=== PATIENT | male | born 2000 | race Caucasian/White ===

== ENCOUNTER 2019-07-14 13:02 | Emergency (ER) | payer BC, OTHER ==
[~2019-07-14] VITALS: Ht 177.8 cm; Wt 72.8 kg
[2019-07-14 13:13] VITALS: BP 121/84
[2019-07-14] MEDS ORDERED: DEXAMETHASONE 4 MG TABLET PO ONE (13:30)
[2019-07-14] MEDS ORDERED: PRED20TA PO (13:58)
[2019-07-14] MEDS ORDERED: ALBU2.5V8 IH (13:58)
[2019-07-14] MEDS ORDERED: GUAI118L13 PO (13:58)
--- NOTE | 2019-07-14 13:58 | PHYS DOC ---
Past History Past Medical History: No Pertinent History Past Surgical History: No Surgical History Smoking: Non-smoker Alcohol Use: Rarely Drug Use: None Adult General Chief Complaint Chief Complaint: SHORTNESS OF BREATH HPI HPI Patient is a 19 yo male presenting with shortness of breath and cough. He presented to [facility] on Monday 07/10 and was diagnosed with influenza and bronchitis and prescribed Tamiflu, azithromycin, and Zofran. He reports that he began to feel better yesterday 07/14 and was well enough to go to work. He felt well until this morning when he began feeling short of breath. His cough is productive, but has no blood in sputum. He went to [facility] and was fou nd to have O2 sats in low 90s so he then presented to [place]. He reports that his shortness of breath waxes and wanes and says that his symptoms become worse when he lays down and improves when he is sitting up. He reports nausea and chills. He denies fever, chest pain, diarrhea and vomiting. Review of Systems Review of Systems Constitutional: Denies fever, reports chills and fatigue Eyes: Denies redness or eye pain HENT: Denies sore throat, reports nasal congestion Respiratory: Reports cough or shortness of breath Cardiovascular: Denies chest pain, reports palpitations GI: Denies abdominal pain and vomiting, reports nausea : Denies dysuria or hematuria Musculoskeletal: Denies back pain or joint pain Integument: Denies rash or skin lesions Neurologic: Denies headache, focal weakness or sensory changes Complete systems were reviewed and found to be within normal limits, except as documented in this note. Family History Family History No pertinent family history. Current Medications Current Medications Current Medications Medications (Trade) Dose Ordered Sig/Nikko Start Time Stop Time Status Last Admin Dose Admin Dexamethasone (Decadron) 10 mg 1X ONCE 07/14/19 13:30 07/14/19 13:31 DC 07/14/19 13:30 10 MG Allergies Allergies Allergies Coded Allergies Type Severity Reaction Last Updated Verified No Known Drug Allergies 07/14/19 No Physical Exam Physical Exam Constitutional: Well developed, well nourished, no acute distress, non-toxic appearance HENT: Normocephalic, atraumatic, oropharynx moist with no erythema or exudate, b/l TMs clear Eyes: Conjunctiva normal, no discharge Neck: Normal range of motion, supple Cardiovascular: Heart rate normal, regular rhythm Lungs & Thorax: Bilateral breath sounds clear to auscultation, no wheezing or crackles Abdomen: Soft, no tenderness Skin: Warm, dry, no erythema, no rash Extremities: ROM intact, no edema Neurologic: Alert and oriented X 3, normal motor function, normal sensory function, no focal deficits noted Psychologic: Affect normal, judgment normal Current Patient Data Vital Signs Vital Signs Date Time Temp Pulse Resp B/P (MAP) Pulse Ox O2 Delivery O2 Flow Rate FiO2 07/14/19 13:13 98.3 75 16 121/84 (96) 100 Room Air EKG EKG [] Radiology/Procedures Radiology/Procedures PROCEDURE: CHEST PA & LATERAL CHEST PA LATERAL History: Cough Comparison: None. Findings: The cardiomediastinal silhouette is normal. Pulmonary vasculature is normal. The lungs are clear. No pleural effusion or pneumothorax is seen. There is no acute bone abnormality. IMPRESSION: No acute cardiopulmonary process. Electronically signed by: Markus Singh MD (07/14/2019 1:59 PM) [id number] Course & Med Decision Making Course & Med Decision Making Pertinent Labs and Imaging studies reviewed. (See chart for details) Patient is a 19 yo male presenting with shortness of breath and productive cough. He was previously diagnosed with influenza and bronchitis on Friday07/10/2019 and was prescribed Tamiflu, Zofran, and Azithromycin. He felt better yesterday, but today he reports feeling that his shortness of breath and cough have returned. He denies fever and chest pain. His O2 Sats are stable. CXR shows no concerning findings. Patient was given Dexamethasone and instructed to continue prescribed Tamiflu, Zofran, and Azithromycin. Prescribed prednisone and is instructed to initiate this medication tomorrow 07/15. Also presc ribed Albuterol inhaler to be used as needed for shortness of breath. Patient stable for discharge with outpatient follow-up with PCP. Discussed findings and plan with patient and family, who acknowledge understanding and agreement. Dragon Disclaimer Dragon Disclaimer This electronic medical record was generated, in whole or in part, using a voice recognition dictation system. Departure Departure: Impression: Primary Impression: Acute bronchitis Disposition: HOME, SELF-CARE Condition: STABLE Referrals: PCP,ROMEO (PCP) Patient Instructions: Acute Bronchitis, [id number] Additional Instructions: Please continue previously prescribed antibiotic and Tamiflu. Scripts Albuterol Sulfate (PROAIR HFA INHALER) 8.5 Gm Hfa.aer.ad 2 PUFF IH PRN Q4-6HRS PRN for wheezing, #1 INHALER 0 Refills Prov: CONCHITA TEJADA DO 07/14/19 Guaifenesin/Codeine Phosphate (GUAIFENESIN-CODEINE SYRUP) 118 Ml Liquid 10 ML PO Q4HRS PRN for COUGH, #240 ML Prov: CONCHITA TEJADA DO 07/14/19 Prednisone (PREDNISONE) 20 Mg Tablet 2 TAB PO DAILY for Bronchitis, #8 TAB Start this medication tomorrow 07/15/2019 Prov: CONCHITA TEJADA DO 07/14/19 Problem Qualifiers Primary Impression: Acute bronchitis Bronchitis organism: unspecified organism Qualified Codes: J20.9 - Acute bronchitis, unspecified CONCHITA TEJADA DO Jul 14, 2019 13:58
--- NOTE | 2019-07-14 14:02 | RAD ---
CHEST PA LATERAL History: Cough Comparison: None. Findings: The cardiomediastinal silhouette is normal. Pulmonary vasculature is normal. The lungs are clear. No pleural effusion or pneumothorax is seen. There is no acute bone abnormality. IMPRESSION: No acute cardiopulmonary process. Electronically signed by: Markus Singh MD (07/14/2019 1:59 PM) [id number]
== END 2019-07-14 14:09 | disposition home or self-care (01) ==
LOC: ER 13:02
DX: J20.9 Acute bronchitis, unspecified (principal)
CPT/HCPCS: 71046; 99284; J8540

== ENCOUNTER → 2020-12-19 | Outpatient (CLI) | payer BC, OTHER ==
[~2020-12-19] MED LIST: ALBU2.5V8 IH; GUAI118L13 PO; PRED20TA PO
--- NOTE | 2020-12-19 17:16 | CARD ---
MR#: [id number] Date of Study: 12/19/2020 Ordering Physician: WOLFGANG FIGUEROA, Referring Physician: WOLFGANG FIGUEROA, Tech: Miguel Child [facility] APPROVED REPORT EXAM: Two-dimensional and M-mode echocardiogram with Doppler and color Doppler. Other Information Quality : Average Rhythm : NSR INDICATION Palpitations 2D DIMENSIONS Left Atrium(2D)2.6 (1.6-4.0cm)IVSd0.7 (0.7-1.1cm) Aortic Root(2D)3.3 (2.0-3.7cm)LVDd5.0 (3.9-5.9cm) LVOT Diameter2.3 (1.8-2.4cm)PWd0.7 (0.7-1.1cm) LVDs3.6 (2.5-4.0cm)FS (%) 29.1 % SV65.9 mlLVEF(%)55.6 (>50%) Aortic Valve AoV Peak Hao.100.8cm/sAoV VTI18.5cm AO Peak GR.4.1mmHgLVOT Peak Hao.84.3cm/s LVOT VTI 13.95cmAO Mean GR.2mmHg JAYE (VMAX)3.76vy6PUM (VTI)3.25cm2 Mitral Valve MV E Qboicibu11.3cm/sMV E Peak Gr.3mmHg MV DECEL [id number] A Fhlrnilu95.3cm/s MV E Mean Gr.1mmHgE/A Ratio1.4 Pulmonary Valve PV Peak Zpxxbmdn01.7cm/sPV Peak Grad.3mmHg Tricuspid Valve TR P. Xvpdrrgb573an/sTR Peak Gr.5mmHg Pulmonary Vein S1 Ighjuivn69.0cm/sD2 Rmgfaoar67.4cm/s LEFT VENTRICLE The left ventricle is normal size. There is normal left ventricular wall thickness. Left ventricle sy stolic function is normal. The Ejection Fraction is estimated at 55%. There is normal LV segmental wa ll motion. The left ventricular diastolic function and filling is normal for age. No left ventricle t hrombus noted on this study. There is no ventricular septal defect visualized. There is no left ventr icular aneurysm. There is no mass noted in the left ventricle. RIGHT VENTRICLE The right ventricle is normal size. There is normal right ventricular wall thickness. The right ventr icular systolic function is normal. ATRIA The left atrium size is normal. The right atrium size is normal. The interatrial septum is intact wit h no evidence for an atrial septal defect or patent foramen ovale as noted on 2-D or Doppler imaging. AORTIC VALVE The aortic valve is normal in structure and function. Doppler and Color Flow revealed no significant aortic regurgitation. There is no significant aortic valvular stenosis. There is no aortic valvular v egetation. MITRAL VALVE The mitral valve is normal in structure and function. There is no evidence of mitral valve prolapse. There is no mitral valve stenosis. Doppler and Color Flow revealed no mitral valve regurgitation note d. TRICUSPID VALVE The tricuspid valve is normal in structure and function. Doppler and Color Flow revealed no tricuspid valve regurgitation noted. There is no tricuspid valve prolapse or vegetation. There is no tricuspid valve stenosis. PULMONIC VALVE The pulmonary valve is normal in structure and function. Doppler and Color Flow revealed no pulmonic valvular regurgitation. There is no pulmonic valvular stenosis. GREAT VESSELS The aortic root is normal in size. The ascending aorta is normal in size. The pulmonary artery is nor mal. The IVC is normal in size and collapses >50% with inspiration. PERICARDIAL EFFUSION There is no pleural effusion. There is no evidence of significant pericardial effusion. Critical Notification Critical Value: No <Conclusion> Left ventricle systolic function is normal. The Ejection Fraction is estimated at 55%. There is normal LV segmental wall motion. There is no evidence of significant pericardial effusion. Signed by : Mitesh Barone, Electronically Approved : 12/19/2020 17:15:53
== END ==
LOC: ECHO 14:35
PROVIDERS: ATTEND Family Medicine
DX: R00.0 Tachycardia, unspecified (principal)
CPT/HCPCS: 93306